=== PATIENT | female | born 1970 | race Caucasian/White ===

== ENCOUNTER → 2017-03-07 | Outpatient (CLI) | payer OTHER ==
[~2017-03-07] MED LIST: ALBUTEROL MDI; AZIT500T77 PO; CEFD300C37 PO; DILT120C2 PO; DOXY100T PO; DUONEB; FAMO20TA7 PO; FLUT1BLS INH; GUAI-103 PO; IPRA3AMP NPPB; LISINOPRIL; METF10002 PO; PRED5TAB PO; ROSU10TA PO; TRADJENTA HOMEMEDPO; VENL150C PO
== END | disposition home or self-care (01) ==
LOC: CFH 13:45
PROVIDERS: ATTEND Internal Medicine
DX: R05 Cough (principal)
CPT/HCPCS: 71020

== ENCOUNTER 2017-05-12 21:44 | Emergency (ER) | payer OTHER ==
[~2017-05-12] VITALS: Ht 170.2 cm; Wt 95.0 kg
[2017-05-12] MEDS ORDERED: SODIUM CHLORIDE FLUSH 10ML SYR IVF ONE (22:00)
[2017-05-12] MEDS: ALBUTEROL SULFATE 2.5 MG/3 ML NPPB SCH (22:24)
[2017-05-12 22:38] LABS: BLOOD UREA NITROGEN 12 mg/dL (7-18)
[2017-05-13] MEDS ORDERED: OMNIPAQUE 350 MG/ML, 100ML BOTTLE ONE (01:04)
[2017-05-13 01:55] VITALS: BP 123/69
== END 2017-05-13 01:58 | disposition home or self-care (01) ==
LOC: ED 23:58
DX: J45.41 Moderate persistent asthma with (acute) exacerbation (principal); E11.9 Type 2 diabetes mellitus without complications; Z87.891 Personal history of nicotine dependence
CPT/HCPCS: 36415; 71010; 71275; 80048; 82040; 85025; 93005; 94640; 99285; J7512; Q9967; J7613

== ENCOUNTER 2017-06-28 11:09 | Emergency (ER) | payer OTHER ==
[~2017-06-28] VITALS: Ht 170.2 cm; Wt 92.0 kg
[~2017-06-28 11:09] MED LIST changes: +AZIT500T5 PO; -AZIT500T77 PO; -LISINOPRIL; +LISINOPRIL PO
[2017-06-28] MEDS ORDERED: OMEP-110 PO (11:21)
[2017-06-28] MEDS ORDERED: NIAC500C3 PO (11:21)
[2017-06-28] MEDS ORDERED: FENO54TA17 PO (11:23)
[2017-06-28] MEDS ORDERED: SODIUM CHLORIDE 0.9% 1,000ML IVBOLUS ONE (11:30)
[2017-06-28 11:45] LABS: PH, VENOUS 7.309 pH (7.320-7.420)
[2017-06-28 11:52] LABS: HEMATOCRIT 42.3 % (34.6-47.8); HEMOGLOBIN 14.1 g/dL (11.7-16.4); WHITE BLOOD COUNT 7.6 x10^3/uL (3.4-10)
[2017-06-28 12:00] LABS: BLOOD UREA NITROGEN 12 mg/dL (7-18)
[2017-06-28] MEDS ORDERED: MAGNESIUM SULFATE 1 GM in SODIUM CHLORIDE 0.9% 50 ML IV ONE (12:00)
[2017-06-28 12:05] LABS: ASPARTATE AMINO TRANSFERASE 37 U/L (15-37)
[2017-06-28 14:23] VITALS: BP 114/69
== END 2017-06-28 14:25 | disposition home or self-care (01) ==
LOC: ED 12:58
DX: J45.901 Unspecified asthma with (acute) exacerbation (principal); J80 Acute respiratory distress syndrome
CPT/HCPCS: 36415; 71010; 80053; 82010; 82803; 85025; 93005; 96365; 99291; J3475; J7030

== ENCOUNTER 2017-07-25 00:22 | Inpatient (IN) | payer OTHER ==
[~2017-07-25] VITALS: Ht 172.7 cm; Wt 107.5 kg
[~2017-07-25 00:22] MED LIST changes: +FENO54TA17 PO; +NIAC500C3 PO; +OMEP-110 PO
[2017-07-25] MEDS ORDERED: DOPAMINE/D5W PMX 400 MG/250 ML ONE (00:30)
[2017-07-25] MEDS ORDERED: EPINEPHRINE SYRINGE 0.1 MG/ML, 10ML ONE (00:30)
[2017-07-25] MEDS ORDERED: DOPAMINE/D5W PMX 250 ML IV PRN (00:46)
[2017-07-25 00:54] LABS: HEMOGLOBIN 14.9 g/dL (11.7-16.4); WHITE BLOOD COUNT 21.4 x10^3/uL (3.4-10)
[2017-07-25] MEDS ORDERED: methylPREDNISolone SOD SUCC 125 MG/2 ML ONE ×2 (00:56→01:32)
[2017-07-25] MEDS ORDERED: ALBUTEROL 0.5%, 20ML ONE (00:57)
[2017-07-25] MEDS ORDERED: SODIUM CHLORIDE 0.9% 1,000ML IVBOLUS ONE ×3 (01:00→04:30)
[2017-07-25] MEDS ORDERED: PLEASE ENTER HEIGHT AND WEIGHT MC SCH (01:00)
[2017-07-25] MEDS ORDERED: SODIUM CHLORIDE FLUSH 10ML SYR IVF ONE (01:00)
[2017-07-25] MEDS ORDERED: CODE BLUE RESPONSE XX ONE (01:00)
[2017-07-25 01:03] LABS: ASPARTATE AMINO TRANSFERASE 43 U/L (15-37); BLOOD UREA NITROGEN 8 mg/dL (7-18)
[2017-07-25] MEDS ORDERED: NOREPINEPHRINE 4 MG in SODIUM CHLORIDE 0.9% 246 ML IV PRN ×3 (01:05→04:23)
[2017-07-25 01:09] LABS: DIFF TOTAL CELLS COUNTED 100 CELL DIFF; IS PT STATUS REG ER OR PRE ER? YES
[2017-07-25] MEDS ORDERED: EPINEPHRINE 1 MG in SODIUM CHLORIDE 0.9% 249 ML IV PRN ×3 (01:10→04:23)
[2017-07-25 01:13] LABS: VERIFY COUNTS? YES
[2017-07-25 01:15] LABS: LARGE PLATELETS 1+
[2017-07-25] MEDS ORDERED: KETAMINE 100 MG/ML, 5ML IV STA (01:24)
[2017-07-25] MEDS ORDERED: MAGNESIUM SULFATE PMX 2GM/50ML 50 ML IV ONE (01:30)
[2017-07-25] MEDS ORDERED: ALBUTEROL/IPRATROPIUM 2.5MG/0.5MG, 3 ML NPPB PRN (01:30)
[2017-07-25] MEDS ORDERED: methylPREDNISolone SOD SUCC 125 MG/2 ML IVP ONE ×2 (01:30)
[2017-07-25] MEDS ORDERED: CLINDAMYCIN PMX 600MG/50ML 50 ML IV ONE (01:30)
[2017-07-25] MEDS ORDERED: LEVOFLOXACIN/PMX 750MG/150ML 150 ML IVPB ONE (01:30)
[2017-07-25] MEDS ORDERED: KETAMINE 10 MG/ML, 20ML ONE (01:32)
[2017-07-25] MEDS ORDERED: KETAMINE 100 MG/ML, 5ML ONE (01:37)
[2017-07-25] MEDS ORDERED: SODIUM CHLORIDE 0.9% 1,000 ML IV ONE (02:27)
[2017-07-25 02:40] LABS: ABG COLLECTION SITE LEFT RADIAL; COLLATERAL CIRCULATION TESTING NORMAL
[2017-07-25] MEDS ORDERED: VECURONIUM 10 MG IVPush ONE (03:00)
[2017-07-25] MEDS ORDERED: PROPOFOL 100 ML IV ONE (03:26)
[2017-07-25] MEDS ORDERED: ONDANSETRON 2MG/ML, 2ML IVPB PRN (03:30)
[2017-07-25] MEDS ORDERED: PHARMACY MAY ADJ FOR RENAL FX MC PRN (03:30)
[2017-07-25] MEDS ORDERED: LACTULOSE 20 GM/30 ML UDC NG PRN ×2 (03:30→04:30)
[2017-07-25] MEDS ORDERED: PHARMACY MAY ADJ FOR RENAL FX MC SCH ×2 (03:30→04:30)
[2017-07-25] MEDS ORDERED: KETAMINE 10 MG/ML, 20ML IV ONE (03:30)
[2017-07-25] MEDS ORDERED: GLUCAGON 1 MG IM PRN ×2 (03:30→04:30)
[2017-07-25] MEDS ORDERED: SENNOSIDES 8.8 MG/5 ML ORAL SOL NG PRN ×2 (03:30→04:30)
[2017-07-25] MEDS ORDERED: PIPERACILLIN/TAZO/PMX 4.5GM 50 ML IVPB SCH (03:30)
[2017-07-25] MEDS ORDERED: ENOXAPARIN 40 MG/0.4 ML SQ SCH (03:30)
[2017-07-25] MEDS: INSULIN REGULAR 100 UNITS/ML, 3ML VIAL SQ-INSULIN SCH ×2 (03:30→07:00)
[2017-07-25] MEDS ORDERED: SENNA/DOCUSATE TABLET NG PRN ×2 (03:30→04:30)
[2017-07-25] MEDS ORDERED: DEXTROSE 50%, 50ML SYRINGE IVPush PRN ×2 (03:30→04:30)
[2017-07-25] MEDS ORDERED: SODIUM CHLORIDE 0.9%, 500ML IVBOLUS PRN ×2 (03:30)
[2017-07-25] MEDS ORDERED: DEXTROSE 4 GM TAB.CHEW PO PRN ×2 (03:30→04:30)
[2017-07-25] MEDS ORDERED: BISACODYL 10 MG SUPP PR PRN ×2 (03:30→04:30)
[2017-07-25] MEDS: PANTOPRAZOLE 40 MG IV IV SCH (03:30)
[2017-07-25] MEDS ORDERED: SODIUM BICARB 8.4%, 50ML SYRINGE IVPush STA (03:43)
[2017-07-25] MEDS ORDERED: SODIUM BICARBONATE 1 MEQ/ML, 50ML VIAL IVPush STA ×2 (03:43→06:42)
[2017-07-25] MEDS ORDERED: SODIUM BICARBONATE 1 MEQ/ML, 50ML VIAL ONE ×2 (03:45→12:37)
[2017-07-25] MEDS ORDERED: PROPOFOL 100 ML IV PRN (04:23)
[2017-07-25] MEDS ORDERED: FENTANYL PF 2,500 MCG in SODIUM CHLORIDE 0.9% 200 ML IV PRN (04:23)
[2017-07-25] MEDS ORDERED: FENTANYL PF 100 MCG/2ML IVPush PRN (04:30)
[2017-07-25] MEDS ORDERED: FAMOTIDINE 20 MG/2 ML IV SCH (04:30)
[2017-07-25] MEDS: ALBUTEROL/IPRATROPIUM 2.5MG/0.5MG, 3 ML INLINE SCH ×5 (04:30→22:34)
[2017-07-25] MEDS ORDERED: LIDOCAINE-MPF 1%, 2ML ENDO PRN (04:30)
[2017-07-25 04:54] LABS: BLOOD UREA NITROGEN 11 mg/dL (7-18)
[2017-07-25 04:57] LABS: ASPARTATE AMINO TRANSFERASE 303 U/L (15-37)
[2017-07-25] MEDS ORDERED: REGULAR INSULIN 62.5 UNITS in SODIUM CHLORIDE 0.9% 249.375 ML IV PRN (05:30)
[2017-07-25] MEDS: methylPREDNISolone SOD SUCC 125 MG/2 ML IVPush SCH ×4 (05:42→22:48)
[2017-07-25] MEDS: HEPARIN 5,000 UNITS/ML, 1ML SQ SCH ×3 (05:43→20:35)
[2017-07-25] MEDS ORDERED: EPINEPHRINE 2 MG in SODIUM CHLORIDE 0.9% 248 ML IV PRN (06:00)
[2017-07-25] MEDS ORDERED: NOREPINEPHRINE 1 MG/ML, 4ML ONE (06:06)
[2017-07-25] MEDS: Albuterol Continuous Neb. Aerogen Syringe 50mg/60ml INLINE PRN (06:48)
[2017-07-25] MEDS ORDERED: SODIUM BICARB 8.4%,50ML SYR. 150 MEQ in DEXTROSE 5% 1,000 ML IV SCH (07:00)
[2017-07-25] MEDS ORDERED: INSULIN ASPART 100 UNITS/ML, PEN SQ-INSULIN SCH (07:00)
[2017-07-25] MEDS: NOREPINEPHRINE 8 MG in SODIUM CHLORIDE 0.9% 242 ML IV PRN ×3 (07:37→16:15)
[2017-07-25 08:14] LABS: ABG COLLECTION SITE ARTERIAL LINE
[2017-07-25 08:24] LABS: ASPARTATE AMINO TRANSFERASE 448 U/L (15-37); BLOOD UREA NITROGEN 13 mg/dL (7-18)
[2017-07-25] MEDS ORDERED: EPINEPHRINE 1 MG/ML, 1ML ONE (08:56)
[2017-07-25] MEDS ORDERED: SODIUM CHLORIDE FLUSH 10ML SYR IVF SCH (09:00)
[2017-07-25] MEDS: VASOPRESSIN 100 UNIT in SODIUM CHLORIDE 0.9% 495 ML IV PRN (10:23)
[2017-07-25] MEDS: PIPERACILLIN/TAZO/PMX 3.375GM 50 ML IV SCH ×3 (10:23→22:48)
[2017-07-25] MEDS: SODIUM CHLORIDE FLUSH 10ML SYR IVF SCH ×2 (10:24→22:18)
[2017-07-25] MEDS ORDERED: DESMOPRESSIN 4 MCG/ML IVPush PRN (10:30)
[2017-07-25] MEDS ORDERED: DEXMEDETOMIDINE 200 MCG in SODIUM CHLORIDE 0.9% 48 ML IV PRN (10:43)
[2017-07-25] MEDS: DOPAMINE/D5W PMX 250 ML IV PRN ×3 (11:13→18:36)
[2017-07-25] MEDS ORDERED: EPINEPHRINE IV PRN (11:30)
[2017-07-25] MEDS ORDERED: EPINEPHRINE 16 MG in SODIUM CHLORIDE 0.9% 234 ML IV PRN (11:30)
[2017-07-25] MEDS ORDERED: SODIUM CHLORIDE 0.9% IV PRN (11:30)
[2017-07-25] MEDS ORDERED: POTASSIUM CHLORIDE PMX 100 ML IV ONE (12:00)
[2017-07-25] MEDS ORDERED: SODIUM BICARB 8.4%, 50ML SYRINGE ONE ×2 (12:37→17:04)
[2017-07-25] MEDS ORDERED: SODIUM BICARB 8.4%, 50ML SYRINGE IVPush ONE ×2 (13:00)
[2017-07-25] MEDS: KSCALE TO 4.0 IV SCH ×3 (13:00→21:00)
[2017-07-25] MEDS: SODIUM BICARB 8.4%,50ML SYR. 150 MEQ in SODIUM CHLORIDE 0.45% 1,000 ML IV SCH ×2 (13:10→22:06)
[2017-07-25] MEDS: SODIUM CHLORIDE 0.9% IV SCH ×2 (14:29→22:48)
[2017-07-25] MEDS: KETAMINE IV SCH ×2 (14:29→22:48)
[2017-07-25] MEDS ORDERED: REGULAR INSULIN 125 UNITS in SODIUM CHLORIDE 0.9% 248.75 ML IV PRN (15:53)
[2017-07-25] MEDS ORDERED: POTASSIUM CHLORIDE 30 MEQ in SODIUM CHLORIDE 0.9% 100 ML IV ONE ×2 (16:00→22:00)
[2017-07-25] MEDS ORDERED: VECURONIUM 10 MG ONE (16:58)
[2017-07-25] MEDS: OCULAR LUBRICANT OPHTH OINT 3.5 GM EACHEYE SCH ×2 (17:40→20:34)
[2017-07-25 19:11] LABS: ABG COLLECTION SITE ARTERIAL LINE
[2017-07-25 19:46] LABS: ASPARTATE AMINO TRANSFERASE 404 U/L (15-37); BLOOD UREA NITROGEN 18 mg/dL (7-18)
[2017-07-25] MEDS ORDERED: REGULAR INSULIN 250 UNITS in SODIUM CHLORIDE 0.9% 247.5 ML IV PRN (20:00)
[2017-07-25] MEDS: GUAIFENESIN 100 MG/5 ML, 10ML UDC NG SCH (21:00)
[2017-07-26] MEDS: REGULAR INSULIN 500 UNITS in SODIUM CHLORIDE 0.9% 245 ML IV PRN ×4 (00:48→19:40)
[2017-07-26] MEDS: KSCALE TO 4.0 IV SCH ×5 (01:00→19:30)
[2017-07-26] MEDS: GUAIFENESIN 100 MG/5 ML, 10ML UDC NG SCH ×2 (01:00→05:00)
[2017-07-26] MEDS: ALBUTEROL/IPRATROPIUM 2.5MG/0.5MG, 3 ML INLINE SCH ×6 (02:22→21:47)
[2017-07-26] MEDS: OCULAR LUBRICANT OPHTH OINT 3.5 GM EACHEYE SCH ×3 (03:17→18:25)
[2017-07-26] MEDS: PANTOPRAZOLE 40 MG IV IV SCH (03:17)
[2017-07-26] MEDS ORDERED: POTASSIUM CHLORIDE 30 MEQ in SODIUM CHLORIDE 0.9% 100 ML IV ONE ×3 (03:30→14:30)
[2017-07-26 04:14] VITALS: BP 116/79
[2017-07-26] MEDS: methylPREDNISolone SOD SUCC 125 MG/2 ML IVPush SCH ×4 (04:57→22:36)
[2017-07-26] MEDS: PIPERACILLIN/TAZO/PMX 3.375GM 50 ML IV SCH ×4 (04:57→22:31)
[2017-07-26] MEDS: HEPARIN 5,000 UNITS/ML, 1ML SQ SCH (04:57)
[2017-07-26] MEDS: SODIUM BICARB 8.4%,50ML SYR. 150 MEQ in SODIUM CHLORIDE 0.45% 1,000 ML IV SCH ×2 (05:47→13:38)
[2017-07-26 06:01] LABS: BLOOD UREA NITROGEN 19 mg/dL (7-18)
[2017-07-26 06:06] LABS: ASPARTATE AMINO TRANSFERASE 339 U/L (15-37)
[2017-07-26 06:34] LABS: ASPARTATE AMINO TRANSFERASE 349 U/L (15-37); BLOOD UREA NITROGEN 19 mg/dL (7-18)
[2017-07-26] MEDS: MAGNESIUM SULFATE 1 GM in SODIUM CHLORIDE 0.9% 50 ML IVPB PRN ×2 (06:41→19:40)
[2017-07-26 07:05] LABS: HEMATOCRIT 41.5 % (34.6-47.8); HEMOGLOBIN 14.3 g/dL (11.7-16.4); WHITE BLOOD COUNT 12.5 x10^3/uL (3.4-10)
[2017-07-26 07:06] LABS: DIFF TOTAL CELLS COUNTED 100 CELL DIFF
[2017-07-26 07:48] LABS: VERIFY COUNTS? YES
[2017-07-26] MEDS: SODIUM CHLORIDE FLUSH 10ML SYR IVF SCH ×2 (09:00→22:31)
[2017-07-26] MEDS ORDERED: INSULIN DETEMIR 100 UNITS/ML, PEN ONE (12:06)
[2017-07-26] MEDS: INSULIN DETEMIR 100 UNITS/ML, PEN SQ-INSULIN SCH (12:17)
[2017-07-26 16:51] LABS: ABG COLLECTION SITE ARTERIAL LINE
[2017-07-26] MEDS ORDERED: POTASSIUM CHLORIDE PMX 100 ML IV ONE ×3 (18:30→23:45)
[2017-07-27] MEDS: INSULIN DETEMIR 100 UNITS/ML, PEN SQ-INSULIN SCH ×2 (00:08→12:00)
[2017-07-27 02:44] LABS: HEMATOCRIT 40.2 % (34.6-47.8); HEMOGLOBIN 13.8 g/dL (11.7-16.4); WHITE BLOOD COUNT 17.2 x10^3/uL (3.4-10)
[2017-07-27] MEDS: ALBUTEROL/IPRATROPIUM 2.5MG/0.5MG, 3 ML INLINE SCH ×6 (02:44→21:51)
[2017-07-27 02:52] LABS: BLOOD UREA NITROGEN 24 mg/dL (7-18)
[2017-07-27 02:55] LABS: ABG COLLECTION SITE ARTERIAL LINE
[2017-07-27] MEDS: OCULAR LUBRICANT OPHTH OINT 3.5 GM EACHEYE SCH ×3 (02:56→21:32)
[2017-07-27] MEDS: VASOPRESSIN 100 UNIT in SODIUM CHLORIDE 0.9% 495 ML IV PRN (02:56)
[2017-07-27] MEDS ORDERED: POTASSIUM CHLORIDE PMX 100 ML IV ONE (03:30)
[2017-07-27 04:00] VITALS: BP 115/75
[2017-07-27] MEDS: NOREPINEPHRINE 16 MG in SODIUM CHLORIDE 0.9% 234 ML IV PRN ×2 (04:08→23:31)
[2017-07-27] MEDS: PIPERACILLIN/TAZO/PMX 3.375GM 50 ML IV SCH (05:03)
[2017-07-27] MEDS: methylPREDNISolone SOD SUCC 125 MG/2 ML IVPush SCH ×4 (05:05→23:31)
[2017-07-27] MEDS: KSCALE TO 4.0 IV SCH ×5 (07:30→20:00)
[2017-07-27] MEDS: ALBUTEROL SULFATE 2.5 MG/3 ML NPPB PRN ×3 (08:03→16:15)
[2017-07-27] MEDS ORDERED: ALBUTEROL SULFATE 2.5 MG/3 ML ONE (08:10)
[2017-07-27] MEDS: DEXTROSE 5% 1,000 ML IV SCH (08:57)
[2017-07-27] MEDS: PANTOPRAZOLE 40 MG IV IVPush SCH (10:13)
[2017-07-27] MEDS: CEFTRIAXONE PMX 1GM/50ML 50 ML IV SCH (10:14)
[2017-07-27] MEDS: SODIUM CHLORIDE FLUSH 10ML SYR IVF SCH ×2 (10:14→21:32)
[2017-07-27] MEDS: METRONIDAZOLE PMX 500MG/100ML 100 ML IV SCH ×2 (10:14→16:54)
[2017-07-27] MEDS: Albuterol Continuous Neb. Aerogen Syringe 50mg/60ml INLINE PRN (12:10)
[2017-07-27] MEDS: ALBUTEROL SULFATE 2.5 MG/3 ML NPPB SCH ×2 (20:00→23:00)
[2017-07-28] MEDS: INSULIN DETEMIR 100 UNITS/ML, PEN SQ-INSULIN SCH ×2 (00:16→12:39)
[2017-07-28] MEDS: ALBUTEROL SULFATE 2.5 MG/3 ML NPPB SCH ×4 (03:00→15:00)
[2017-07-28] MEDS: KSCALE TO 4.0 IV SCH ×3 (04:00→08:00)
[2017-07-28] MEDS: ALBUTEROL/IPRATROPIUM 2.5MG/0.5MG, 3 ML INLINE SCH ×3 (04:30→12:30)
[2017-07-28] MEDS: OCULAR LUBRICANT OPHTH OINT 3.5 GM EACHEYE SCH ×2 (04:37→12:38)
[2017-07-28] MEDS: METRONIDAZOLE PMX 500MG/100ML 100 ML IV SCH ×2 (04:37→12:38)
[2017-07-28] MEDS: methylPREDNISolone SOD SUCC 125 MG/2 ML IVPush SCH ×2 (04:39→12:38)
[2017-07-28 04:58] LABS: ABG COLLECTION SITE ARTERIAL LINE
[2017-07-28 05:21] LABS: ASPARTATE AMINO TRANSFERASE 616 U/L (15-37); BLOOD UREA NITROGEN 49 mg/dL (7-18)
[2017-07-28 05:41] LABS: HEMATOCRIT 34.6 % (34.6-47.8); HEMOGLOBIN 11.9 g/dL (11.7-16.4); WHITE BLOOD COUNT 19.9 x10^3/uL (3.4-10)
[2017-07-28 06:01] LABS: DIFF TOTAL CELLS COUNTED 100 CELL DIFF
[2017-07-28 06:05] LABS: VERIFY COUNTS? YES
[2017-07-28 06:08] LABS: LARGE PLATELETS 1+
[2017-07-28] MEDS: DEXTROSE 5% 1,000 ML IV SCH (07:34)
[2017-07-28 09:48] LABS: ABG COLLECTION SITE NOT DOCUMENTED
[2017-07-28] MEDS: PANTOPRAZOLE 40 MG IV IVPush SCH (10:58)
[2017-07-28] MEDS: SODIUM CHLORIDE FLUSH 10ML SYR IVF SCH (10:58)
[2017-07-28] MEDS: CEFTRIAXONE PMX 1GM/50ML 50 ML IV SCH (10:58)
[2017-07-28] MEDS ORDERED: ACETAMINOPHEN 650 MG/20.3 ML UDC ONE (11:24)
[2017-07-28] MEDS ORDERED: ACETAMINOPHEN 650 MG/20.3 ML UDC PO ONE (12:30)
[2017-07-28] MEDS ORDERED: LORazepam 2 MG/ML, 1ML IV PRN (17:00)
[2017-07-28] MEDS ORDERED: morphine SULFATE 10 MG/ML, 1ML IV PRN (17:00)
[2017-07-28] MEDS ORDERED: ATROPINE OPHTH SOLN 1%, 2ML PO PRN (17:30)
== END 2017-07-29 00:58 | DRG 208 ==
LOC: EDBD → MERGE 00:22 → ED 02:12 → EDIP 02:22 → CCU 02:52
PROVIDERS: ADMIT Hospitalist; ATTEND Hospitalist
PROC: 5A1945Z Respiratory Ventilation, 24-96 Consecutive Hours (ICD-10-PCS; principal; 2017-07-25)
PROC: 5A12012 Performance of Cardiac Output, Single, Manual (ICD-10-PCS; 2017-07-25)
PROC: 0BH17EZ Insertion of Endotracheal Airway into Trachea, Via Natural or Artificial Opening (ICD-10-PCS; 2017-07-25)
PROC: 02HV33Z Insertion of Infusion Device into Superior Vena Cava, Percutaneous Approach (ICD-10-PCS; 2017-07-27)
PROC: 02H633Z Insertion of Infusion Device into Right Atrium, Percutaneous Approach (ICD-10-PCS; 2017-07-28)
DX: J96.02 Acute respiratory failure with hypercapnia (principal); I46.9 Cardiac arrest, cause unspecified; N17.0 Acute kidney failure with tubular necrosis; R57.9 Shock, unspecified; J18.9 Pneumonia, unspecified organism; G93.1 Anoxic brain damage, not elsewhere classified; D69.6 Thrombocytopenia, unspecified; J45.52 Severe persistent asthma with status asthmaticus; E87.2 Acidosis; E87.0 Hyperosmolality and hypernatremia; E11.65 Type 2 diabetes mellitus with hyperglycemia; I48.91 Unspecified atrial fibrillation; J96.01 Acute respiratory failure with hypoxia; E66.9 Obesity, unspecified; F32.9 Major depressive disorder, single episode, unspecified; E78.5 Hyperlipidemia, unspecified; H57.04 Mydriasis; Z51.5 Encounter for palliative care; Z66 Do not resuscitate; Z87.891 Personal history of nicotine dependence; Z68.36 Body mass index [BMI] 36.0-36.9, adult; Z88.5 Allergy status to narcotic agent
CPT/HCPCS: 36415; 36600; 71010; 80047; 80048; 80053; 82010; 82533; 82803; 82947; 82962; 83735; 83880; 84100; 84132; 84478; 84484; 85025; 85610; 85730; 87040; 87070; 87077; 87081; 87147; 87205; 92950; 93005; 94002; 94003; 94640; 95819; 96361; 96374; 96375; 96376; 99292; J0171; J0696; J1265; J1644; J1815; J2543; J3475; J3480; J7070; J7611; J7613; J7620; C9113; J2060; J2270; J2930; J7030; J7040; J7050; S0028